=== PATIENT | male | born 1995 | race Caucasian/White ===

== ENCOUNTER 2018-03-23 21:39 | Emergency (ER) | payer OTHER ==
[2018-03-23 21:47] VITALS: BP 141/74
--- NOTE | 2018-03-23 21:50 | EDPHY ---
H & P Stated Complaint: L FOOT PAIN. POSS FX WHILE AT WORK Time Seen by Provider: 03/23/18 21:50 HPI/ROS: HPI: This is a 22-year-old male who presents with Chief Complaint: L FOOT PAIN. POSS FX WHILE AT WORK Location: Left foot Quality: Pain Duration: Today Signs and Symptoms: No bleeding, no radiation, no numbness, no weakness, no tingling, no incontinence, no decreased range of motion, + swelling, + pain, no fever Timing: Acute Severity: Moderate Context: Patient presents with complaints of injury while at work. He accidentally kicked a case of beer and felt popping sensation and then immediate pain in the left lateral foot. Patient reports that prior to this he had been complaining of bottom of his foot pain when he walks. He was wearing boots, not steel toed, while at work. He reports increased pain with ambulation and weight-bearing. Denies paresthesias/weakness/skin color changes. Modifying Factors: None Comment: ROS: see HPI Constitutional: No fever, no chills, no weight loss Eyes: No blurred vision Respiratory: No shortness of breath, no cough Cardiovascular: No chest pain Gastrointestinal: No nausea, no vomiting no diarrhea Genitourinary: No dysuria Extremities: No myalgias Neurologic: No weakness, no numbness Skin: No rashes Hematologic: No bruising, no bleeding MEDICAL/SURGICAL/SOCIAL HISTORY: Medical history: Generally healthy. Does not take any regular medications. Surgical history: Denies Social history: CONSTITUTIONAL: awake and alert, no obvious distress HEENT: Atraumatic and normocephalic. NECK: supple, no midline tenderness, flexion 45 degrees, extension 45 degrees, right and left lateral flexion 45 degrees. No meningismus. Cardiovascular: Normal S1/S2, regular rate, regular rhythm, without murmur rub or gallop. PULMONARY/CHEST: Symmetrical and nontender. no crepitus. Clear to auscultation bilaterally. Good air movement. No accessory muscle usage. ABDOMEN: Soft, nondistended, nontender, no ecchymosis. PELVIC: no pain with rocking; bilateral hips flexion 125 degrees, extension 30 degrees, with no pain internal rotation and no pain external rotation. BACK: No midline tenderness, no paraspinous spasm, deep tendon reflexes 2/2, no pain with straight leg raise, No foot drop. Achilles reflexes are equal bilaterally. Able to walk on heels and toes without difficulty. EXTREMITIES: 2/2 pulses, strength 5/5, left Ankle: Plantar flexion to 50, dorsiflexion to 20. Foot inversion to 35 degree. No tenderness/swelling Anterior talofibular ligament. No tenderness/swelling Calcaneofibular ligament , no tenderness/swelling posterior talofibular ligament, no tenderness/swelling posterior inferior tibiofibular ligament. Achilles tendon intact. Left lateral aspect near the arch shows mild prominent; tenderness to palpation. DIP/PIP/MCP flexion/extension intact with good light touch sensation. no deformities, no clubbing, no cyanosis or edema. NEUROLOGICAL: no focal neuro deficits. GCS 15. Light touch sensation intact. SKIN: Warm and dry, no erythema. no rash. Good capillary refill. Source: Patient Exam Limitations: No limitations - Personal History Current Tetanus/Diphtheria Vaccine: Yes Current Tetanus Diphtheria and Acellular Pertussis (TDAP): Yes - Medical/Surgical History Hx Asthma: No Hx Chronic Respiratory Disease: No Hx Diabetes: No Hx Cardiac Disease: No Hx Renal Disease: No Hx Cirrhosis: No Hx Alcoholism: No Hx HIV/AIDS: No Hx Splenectomy or Spleen Trauma: No Other PMH: DENIES - Social History Smoking Status: Never smoked Constitutional: Initial Vital Signs Temperature (C) 37.1 C 03/23/18 21:45 Heart Rate 83 03/23/18 21:45 Respiratory Rate 18 03/23/18 21:45 Blood Pressure 141/74 H 03/23/18 21:45 O2 Sat (%) 95 03/23/18 21:45 O2 Delivery Mode Room Air Allergies/Adverse Reactions: No Known Allergies Allergy (Unverified 03/23/18 21:47) Home Medications: Medication Instructions Recorded NK [No Known Home Meds] 03/23/18 Medical Decision Making Procedures: Procedure: Splint placement. A left walking boot was applied by the RN. After application of the splint I returned and re-examined the patient. The splint was adequately immobilizing the joint and distal to the splint the patient's circulation and sensation was intact. ED Course/Re-evaluation: Left foot x-ray ordered No signs of neurovascular compromise/tenting of skin/compartment syndrome/ extremities and joints examined above and below area of concern and are neurovascularly intact/cellulitis. X-ray my read shows minimally displaced 5th metatarsal fracture Placed in Walters boot, crutches, non weight-bearing status, podiatry follow-up Differential includes but is not limited to stress fracture, plantar fasciitis, calcaneal navicular ligament rupture, tendinopathy. Differential Diagnosis: Midfoot differential diagnosis includes but is not limited to navicular injury, spring ligament rupture, Lisfranc joint complex injury, extensor tendinopathy of the foot, tarsometatarsal bossing. Departure - Departure Disposition: Home, Routine, Self-Care Clinical Impression: Chapa fracture Qualifiers: Encounter type: initial encounter Fracture type: closed Laterality: left Qualified Code(s): S99.192A - Other physeal fracture of left metatarsal, initial encounter for closed fracture Condition: Good Instructions: Crutch Instructions (ED), Toe Fracture (ED) Additional Instructions: Wear the walking boot while out of bed. Use crutches to aid ambulation. Non weight-bearing status until seen by Podiatry. Take Tylenol 650 mg every 4 hours and/or Ibuprofen 600 mg every 8 hours with food as needed for pain. Apply ice for 30 minutes at a time; 2-3 times per day for the next 1-2 days. Follow up with Podiatry in 5 days at which time they will evaluate and recommend with you if conservative management versus further imaging is indicated. The x-rays obtained in the emergency department today demonstrate minimally displaced fracture at the 5th metatarsal. Return to the ER immediately if you experience new or worsening pain, discoloration, numbness, tingling, or any other symptoms that concern you. Referrals: Parish Antony DPM [Doctor of Podiatric Medicine] - As per Instructions
== END 2018-03-23 22:26 | disposition home or self-care (01) ==
DX: S99.192A Other physeal fracture of left metatarsal, initial encounter for closed fracture (principal); W22.8XXA Striking against or struck by other objects, initial encounter; Y92.69 Other specified industrial and construction area as the place of occurrence of the external cause; Y99.0 Civilian activity done for income or pay; Y93.89 Activity, other specified
CPT/HCPCS: L4386